=== PATIENT | male | born 1950 | race Caucasian/White ===

== ENCOUNTER 2016-09-28 11:19 | Observation (INO) | payer OTHER ==
[2016-09-28] MEDS ORDERED: ONDANSETRON DISINTEGRATING 4 MG TAB PO ONE (11:40)
--- NOTE | 2016-09-28 12:37 | EDPHY ---
H & P Stated Complaint: right upper quad pain nausea, diarrhea, hx gall stones Time Seen by Provider: 09/28/16 12:27 HPI/ROS: CHIEF COMPLAINT: RUQ abdominal pain. HISTORY OF PRESENT ILLNESS: The patient is a 66-year-old male who presents with four days of RUQ pain. The pain onset after a meal and has been waxing and waning since then. He denies known alleviating or provoking factors. He admits vomiting and 3 weeks of diarrhea. The diarrhea he has had since having the Norovirus. He denies fever, bloody stool, urinary symptoms. He was seen at [facility] for this complaint and discharged with the diagnosis of gastroenteritis. He has been using the Percocet prescribed to him at [place] to control the pain. REVIEW OF SYSTEMS: Aside from elements discussed in the HPI, a comprehensive 10-point review of systems was reviewed and is negative. PAST MEDICAL HISTORY: Hypertension, restless leg syndrome, appendectomy. SOCIAL HISTORY: Rare alcohol use. VITAL SIGNS: Reviewed by me GENERAL: Well-developed, well-nourished, resting comfortably in no respiratory distress. HEENT: Atraumatic. Eyes: No icterus, no injection. Mouth: Dry mucous membranes. No erythema or lesions. Neck: supple with no adenopathy. LUNGS: Crackles at right base. No wheezes, rhonchi or rales. CARDIAC: Regular rate and rhythm, no rubs, murmurs or gallops. ABDOMEN: RUQ tenderness. Soft, nondistended, bowel sounds normal. BACK: No CVA tenderness. EXTREMITIES: No trauma. No edema. Range of motion is normal throughout. NEURO: Alert and oriented, grossly nonfocal. SKIN: Warm and dry, no rash. PSYCHIATRIC: Normal mentation, no agitation. Portions of this note were transcribed by a quality engineer medical device. I personally performed a history, physical exam, medical decision making, and confirmed accuracy of information the transcribed note. Source: Patient Exam Limitations: No limitations - Personal History Current Tetanus/Diphtheria Vaccine: Unsure Current Tetanus Diphtheria and Acellular Pertussis (TDAP): Unsure - Medical/Surgical History Hx Asthma: No Hx Chronic Respiratory Disease: No Hx Diabetes: No Hx Cardiac Disease: No Hx Renal Disease: No Hx Cirrhosis: No Hx Alcoholism: No Hx HIV/AIDS: No Hx Splenectomy or Spleen Trauma: No Other PMH: states has irregular heart rythm "they always get excited about then its nothing"--unk name - Social History Smoking Status: Former smoker Constitutional: Initial Vital Signs Temperature (C) 37.2 C 09/28/16 11:29 Heart Rate 89 09/28/16 11:29 Respiratory Rate 16 09/28/16 11:29 Blood Pressure 102/58 L 09/28/16 11:29 O2 Sat (%) 88 L 09/28/16 11:29 O2 Delivery Mode Room Air O2 (L/minute) 2 Allergies/Adverse Reactions: No Known Allergies Allergy (Unverified 02/26/16 20:25) Home Medications: Medication Instructions Recorded Losartan/Hydrochlorothiazide 1 each PO DAILY@02/26/16 [Hyzaar 100-25 Tablet] Magnesium Oxide 250 mg PO DAILY@02/26/16 Pramipexole Di-HCl [Mirapex 1.5 mg] 1.5 mg PO DAILY@02/26/16 Cholecalciferol Vit D3 [Vitamin D3 1,000 units PO DAILY@09/28/16 (*)] Citalopram Hydrobromide 10 mg PO DAILY@09/28/16 [Citalopram HBr] Multivitamins [Multivitamin (*)] 1 each PO DAILY@09/28/16 Celoron-3 Fatty Acids [Fish Oil 1000 1,000 mg PO DAILY@09/28/16 mg (*)] Ondansetron Odt [Zofran Odt 4 mg 4 mg PO Q6HRS PRN 09/28/16 (*)] Oxymetazoline HCl [Afrin Nasal 1 spray EACHNARE DAILY PRN 09/28/16 [place] (OTC)] oxyCODONE/APAP 5/325 [Percocet 1 - 2 tab PO Q4HRS PRN 09/28/16 5/325 (*)] Medical Decision Making - Diagnostics Imaging: X-ray of the chest was obtained. I viewed the images myself on the PACS system. My interpretation of the images is: point-like atelectasis right lower lobe. The radiologist interpretation is pending at this time. I discussed the x-ray findings with the patient. Study: Ultrasound of the: RUQ. Indication: Pain, vomiting. Results: 1. Cholelithiasis with multiple gallstones and a 2.9 cm gallstone lodged in the gallbladder neck. Gallbladder wall thickening and pericholecystic fluid consistent with acute cholecystitis. 2. Common bile duct not well visualized. 3. Hepatomegaly and hepatic steatosis with with probable focal fatty sparing near the gallbladder fossa. The study was read by the radiologist, Dr. Lowe. I viewed the images myself on the PACS system. Results: CT scan of the chest for pulmonary embolism was obtained. I viewed the images independently on the PACS system. I discussed the results of the study with the radiologist. Impression: Atelectasis bibasilar and in the lingula. No PE. Please see the full radiology report. ED Course/Re-evaluation: An IV was established and labs ordered. Chest x-ray, RUQ ultrasound ordered. WBC elevated at 16.53. Patient's ultrasound is concerning for multiple signs of cholecystitis. Patient has several gallstones including 2.9 cm gallstone lodged in the neck of the gallbladder. Gallbladder wall thickening and pericholecystic fluid or also present. Patient was re-evaluated by myself. On room air he desaturates quickly to the mid to low 80% range. His D-dimer is elevated at 2.8. He underwent a CT scan to rule out pulmonary embolism. This shows no PE but is concerning for bibasilar and right lingular atelectasis. 1413: Patient was seen by Dr. Thomas Dawson in the emergency department. Plan to go to surgery as soon as the CT PE is performed. Differential Diagnosis: After obtaining the patient's history and performing an examination, differential diagnosis considered included but was not limited to cholecystitis , gastritis, pancreatitis, kidney stones, urinary tract infections, lower lobe pneumonia, and other causes. Consult/Admit Bed Type: Dr. Thomas Dawson, [facility] - Data Points Laboratory Results: Laboratory Results 09/28/16 12:30 09/28/16 12:30 09/28/16 12:30 WBC 16.53 H 10^3/uL (3.80-9.50) RBC 4.97 10^6/uL (4.40-6.38) Hgb 14.3 g/dL (13.7-17.5) Hct 43.4 % (40.0-51.0) MCV 87.3 fL (81.5-99.8) MCH 28.8 pg (27.9-34.1) MCHC 32.9 g/dL (32.4-36.7) RDW 14.0 % (11.5-15.2) Plt Count 240 10^3/uL (150-400) MPV 10.0 fL (8.7-11.7) Neut % (Auto) 84.5 H % (39.3-74.2) Lymph % (Auto) 5.3 L % (15.0-45.0) [place] % (Auto) 8.2 % (4.5-13.0) Eos % (Auto) 1.1 % (0.6-7.6) Baso % (Auto) 0.2 L % (0.3-1.7) Nucleat RBC Rel Count 0.0 % (0.0-0.2) Absolute Neuts (auto) 13.95 H 10^3/uL (1.70-6.50) Absolute Lymphs (auto) 0.88 L 10^3/uL (1.00-3.00) Absolute Monos (auto) 1.35 H 10^3/uL (0.30-0.80) Absolute Eos (auto) 0.19 10^3/uL (0.03-0.40) Absolute Basos (auto) 0.04 10^3/uL (0.02-0.10) Absolute Nucleated RBC 0.00 10^3/uL (0-0.01) Immature Gran % 0.7 % (0.0-1.1) Immature Gran # 0.12 H 10^3/uL (0.00-0.10) D-Dimer 2.88 H ug/mLFEU (0.00-0.50) Sodium 142 mEq/L (134-144) Potassium 3.8 mEq/L (3.5-5.2) Chloride 99 mEq/L (97-110) Carbon Dioxide 32 H mEq/l (22-31) Anion Gap 11 mEq/L (8-16) BUN 29 H mg/dL (7-23) Creatinine 1.3 mg/dL (0.7-1.3) Estimated GFR 55 Glucose 112 H mg/dL (70-100) Calcium 8.4 L mg/dL (8.5-10.4) Total Bilirubin 0.9 mg/dL (0.1-1.4) Conjugated Bilirubin 0.4 mg/dL (0.0-0.5) Unconjugated Bilirubin 0.5 mg/dL (0.0-1.1) AST 27 IU/L (17-59) ALT 40 IU/L (21-72) Alkaline Phosphatase 78 IU/L (38-126) Total Protein 6.3 g/dL (6.3-8.2) Albumin 3.4 L g/dL (3.5-5.0) Lipase 14.0 L IU/L (23-300) Medications Given: Discontinued Medications Hydromorphone HCl (Dilaudid) 1 mg IVP EDNOW ONE Stop: 09/28/16 12:39 Last Admin: 09/28/16 12:50 Dose: 1 mg Sodium Chloride (Ns) 1,000 mls @ 0 mls/hr IV ONCE ONE PRN Reason: Wide Open Stop: 09/28/16 12:39 Last Admin: 09/28/16 12:41 Dose: 1,000 mls Ondansetron HCl (Zofran Odt) 4 mg PO EDNOW ONE Stop: 09/28/16 11:41 Last Admin: 09/28/16 11:40 Dose: 4 mg Ondansetron HCl (Zofran) 4 mg IVP EDNOW ONE Stop: 09/28/16 12:43 Last Admin: 09/28/16 12:50 Dose: 4 mg Departure - Departure Disposition: [facility] Acute Clinical Impression: Cholecystitis, Hypoventilation, Atelectasis of both lungs, Hypoxemia Cholelithiasis Qualifiers: Cholelithiasis location: gallbladder Cholecystitis presence: with cholecystitis Cholecystitis acuity: acute Biliary obstruction: with biliary obstruction Qualifier Code: (K80.01) Calculus of gallbladder with acute cholecystitis with obstruction Abdominal pain Qualifiers: Abdominal location: right upper quadrant Qualifier Code: (R10.11) Right upper quadrant pain Condition: Fair Report Scribed for: Valorie Velasco Report Scribed by: Ivan Lam Date of Report: 09/28/16 Time of Report: 12:29
[2016-09-28] MEDS ORDERED: NS 1,000 ML IV ONE ×2 (12:38→15:12)
[2016-09-28] MEDS ORDERED: HYDROmorphONE/DILAUDID 1 MG/ML SYR IVP ONE (12:38)
[2016-09-28] MEDS ORDERED: ONDANSETRON 4 MG/2 ML VIAL IVP ONE (12:42)
[2016-09-28 12:45] LABS: % IMMATURE GRANULYOCYTES 0.7 % (0.0-1.1); ABSOLUTE IMMATURE GRANULOCYTES 0.12 10^3/uL (0.00-0.10); ADD DIFF? NO; ADD MORPH? NO; ADD SCAN? NO; ATYPICAL LYMPHOCYTE FLAG 0 (0-99); FRAGMENT RBC FLAG 0 (0-99); HEMATOCRIT 43.4 % (40.0-51.0); HEMOGLOBIN 14.3 g/dL (13.7-17.5); LEFT SHIFT FLG 10 (0-99); LIPEMIA HEMOLYSIS FLAG 80 (0-99); MEAN CELL HEMOGLOBIN 28.8 pg (27.9-34.1); MEAN CELL HEMOGLOBIN CONCENTR. 32.9 g/dL (32.4-36.7); MEAN CELL VOLUME 87.3 fL (81.5-99.8); PLATELET CLUMPS FLAG 0 (0-99); PLATELET COUNT 240 10^3/uL (150-400); RED BLOOD CELL COUNT 4.97 10^6/uL (4.40-6.38)
[2016-09-28 12:59] LABS: ALANINE AMINOTRANSFERASE 40 IU/L (21-72); ALBUMIN 3.4 g/dL (3.5-5.0); ALKALINE PHOSPHATASE 78 IU/L (38-126); ANION GAP 11 mEq/L (8-16); ASPARTATE AMINOTRANSFERASE 27 IU/L (17-59); BILIRUBIN,TOTAL 0.9 mg/dL (0.1-1.4); BILIRUBIN-CONJUGATED 0.4 mg/dL (0.0-0.5); BILIRUBIN-UNCONJUGATED 0.5 mg/dL (0.0-1.1); CALCIUM 8.4 mg/dL (8.5-10.4); CARBON DIOXIDE 32 mEq/l (22-31); CHLORIDE 99 mEq/L (97-110); CREATININE 1.3 mg/dL (0.7-1.3); GLOMERULAR FILTRATION RATE 55; GLUCOSE 112 mg/dL (70-100); POTASSIUM 3.8 mEq/L (3.5-5.2); SODIUM 142 mEq/L (134-144); TOTAL PROTEIN 6.3 g/dL (6.3-8.2)
--- NOTE | 2016-09-28 13:32 | DX ---
Chest, Two Views September 28, 2016 at 1236 Hours History: Cough, shortness of breath, abdominal pain. Comparison: None. Findings: Cardiac silhouette is within normal range. Linear atelectasis or scarring in the right midd le lobe and lingula. No pneumonia, congestive heart failure, pleural effusion, or pneumothorax. Impressions: 1. Right middle lobe and lingular linear atelectasis or scarring. 2. No pneumothorax. 3. No pneumoperitoneum.
--- NOTE | 2016-09-28 13:59 | US ---
Ultrasound of the Abdomen Limited History: Right upper quadrant Abdominal pain. Findings: Gallbladder: Multiple shadowing gallstones identified with a 2.9 cm nonmobile gallstone lodged in gal lbladder neck region. Additional gallstones in the fundus. Minimal pericholecystic fluid. Diffuse gal lbladder wall thickening measuring at least 7 mm. Common bile duct not well visualized. Liver: Liver measures 18 cm in length which is enlarged with diffusely increased echogenicity through out which limits evaluation for focal lesions. Region of probable focal fatty sparing near the gallbl adder fossa measuring 3.2 x 2.9 x 1.7 cm. Renal: Right kidney measures 11 x 7 x 5 cm without hydronephrosis. Pancreas: Obscure by bowel gas. Aorta: Obscured by bowel gas. Impression: 1. Cholelithiasis with multiple gallstones and a 2.9 cm gallstone lodged in the gallbladder neck. Gal lbladder wall thickening and pericholecystic fluid consistent with acute cholecystitis. 2. Common bile duct not well visualized. 3. Hepatomegaly and hepatic steatosis with with probable focal fatty sparing near the gallbladder fos sa. Findings and recommendations discussed with Emergency Department physician, Dr. Valorie Velasco at 1355 hour, today. Final report concurs with initial preliminary interpretation.
[2016-09-28] MEDS ORDERED: IOPAMIDOL (ISOVUE 370) 100 ML BTL IV ONE (14:24)
[2016-09-28] MEDS ORDERED: BUPIVACAINE/EPI 0.25% 30 ML SDV ONE (14:34)
[2016-09-28] MEDS ORDERED: SKIN ADHESIVE (DERMABOND) 1 EACH TP ONE (14:34)
[2016-09-28] MEDS ORDERED: fentaNYL 100 MCG/2 ML INJ ONE ×2 (15:20→16:31)
[2016-09-28] MEDS ORDERED: PROPOFOL/EMULSION 500 MG/50 ML BOTTLE IV ONE (15:20)
--- NOTE | 2016-09-28 15:22 | CT ---
CT Chest Pulmonary Angiogram, With Contrast Enhancement and Multiplanar Reconstructions 1459 hour s History: Cholecystitis, hypoxia, elevated D-dimer, former smoker, right-sided chest pain, right uppe r quadrant abdominal pain. Technique: 1.25-mm axial multidetector helical CT imaging was performed through the chest while 90 m L Isovue-370 were injected intravenously, without complication. The images were then transferred to an independent workstation where multiplanar and three-dimensional reconstructions were performed by the interpreting physician and reviewed at multiple windows. Dose reduction techniques were utilized . CT Pulmonary Angiogram Findings: No CT evidence of definite pulmonary thromboemboli. No aortic aneu rysm or dissection. The heart is normal in size. CT Chest Findings: Linear densities in the right middle lobe, bilateral lower lobes, and lingula lik rufina representing atelectasis. No pleural effusion or pneumothorax. No suspicious pulmonary nodules or significant adenopathy. No pericardial effusion. The upper abdomen demonstrates a 2.5-cm gallstone, with pericholecystic fluid, consistent with acute cholecystitis. Impressions 1. No definite pulmonary thromboemboli. 2. Acute cholecystitis, with cholelithiasis. 3. Subsegmental atelectasis bilateral lower lobes, right middle lobe, and lingula. Findings and recommendations discussed with Emergency Department physician, Dr. Valorie Velasco, at 1510 hours, on September 28, 2016. Final report concurs with initial preliminary interpretation. A test result has been communicated to a licensed care provider and documented in [employer], 3:14:19 PM , 09/28/2016, [employer] Message ID [id number].
[2016-09-28] MEDS ORDERED: ERTAPENEM 1 GM in NS 100 ML IV ONE (15:24)
[2016-09-28] MEDS ORDERED: MIDAZOLAM 2 MG/2 ML VIAL ONE (15:42)
--- NOTE | 2016-09-28 15:48 | GHP ---
[f rep st] HISTORY AND PHYSICAL DATE OF ADMISSION: 09/28/2016 CHIEF COMPLAINT: Epigastric and right upper quadrant pain. HISTORY OF PRESENT ILLNESS: This is a 66-year-old male who presents today with persistent right uppe r quadrant pain associated with nausea and vomiting. The patient was seen at an outside hospital las t with similar complaints where he was diagnosed with gastroenteritis/GERD, subsequently romina nathalia on Percocet, and sent home. The patient states that the pain has been persistent, although less so with the oral narcotics, although if he does not dose the narcotics fairly regularly, he has recur rent pain. He states that this is not the first episode of pain he has had, he did have 1 episode th e previous week which he feels was exacerbated and set off by a spicy food meal. This was self-limit ed and afterwards he felt well. He states that once again last he had a spicy chili meal an d had persistent pain which has only been relieved with narcotics. He describes the pain as right up per quadrant with radiation to his back and epigastrium. He does associate nausea and vomiting with it. He denies having fevers or chills. He also denies having any acholic stools or any unusually da rk urine. Other than the above complaints, he has no other issues. PAST MEDICAL HISTORY: Significant for hypertension, depression and restless legs syndrome. PAST SURGICAL HISTORY: Significant for laparoscopic appendectomy performed approximately 15 years ag o here at [facility]. ALLERGIES: None. CURRENT MEDICATIONS: Include losartan, hydrochlorothiazide, Mirapex and Celexa. REVIEW OF SYSTEMS: A full 10-point review of systems was performed, and unless explicitly stated abo ve, is otherwise negative. PHYSICAL EXAMINATION: VITAL SIGNS: His temperature today is 37.2, his blood pressure is 101/49, his heart rate is 69, and he is 94% on 2 L nasal cannula. GENERAL: He is alert and oriented, in no acu te distress. CV: He has a regular rate and rhythm. He has no murmurs. LUNGS: Clear. ABDOMEN: O bese, distended, tender in the right upper quadrant, with a positive Delgadillo sign. He has previously well-healed scars consistent with his past surgical history. EXTREMITIES: Warm and well perfused. LABS: He has a leukocytosis to 16,000. His H and H are stable. His chemistry is within normal limi ts, although he does have an elevated glucose to 112. In addition, he does have an elevated D-dimer to 2.8 and is hypoxic on room air. IMAGING: He had an ultrasound performed which shows no intra- or extraductal dilatation. It does, h owever, show multiple gallstones, one appears to be lodged within the gallbladder neck, with an eleva alana gallbladder wall at 7 mm. He also has an enlarged fatty liver at 18 cm. He has a chest x-ray wh ich shows likely atelectasis. ASSESSMENT AND PLAN: The patient is a 66-year-old male with acute cholecystitis. I had a long discu ssion with the patient regarding his diagnosis. I am concerned given his underlying hypoxia with his elevated D-dimer, and prior to proceeding to the operating room, I will obtain a CTA to rule out pul monary embolus as he has 2 worrisome findings. I discussed the risks, benefits, and alternatives of the surgery with him, and if the CTA does indeed show no pulmonary embolus, I will plan to proceed to the operating room for a laparoscopic cholecystectomy. /[id number]/MODL
[2016-09-28] MEDS ORDERED: SUGAMMADEX SODIUM 200 MG/2 ML VIAL IVP ONE (16:39)
[2016-09-28] MEDS ORDERED: OXYCODONE/APAP 5/325 TAB PO PRN (17:16)
[2016-09-28] MEDS ORDERED: HYDROmorphONE/DILAUDID 1 MG/ML SYR IVP PRN (17:16)
[2016-09-28] MEDS ORDERED: ONDANSETRON 4 MG/2 ML VIAL IVP PRN (17:16)
--- NOTE | 2016-09-28 17:23 | POSTOPPROG ---
Post Op Note Date of Operation: 09/28/16 Surgeon: Thomas Dawson Anesthesiologist: Donavon Anesthesia: GET(General Endotracheal) Pre-op Diagnosis: cholecystitis Post-op Diagnosis: gangrenous cholecystitis Indication: pain Procedure: lap irving Findings: gangrenous cholecystitis. Critical view obtained Inf/Abcess present in the surg proc area at time of surgery?: No EBL: 50-100 Drains: Lamont Dawn Specimen(s): gallbladder
--- NOTE | 2016-09-28 18:13 | GOP ---
[f rep st] OPERATIVE REPORT DATE OF OPERATION: 09/28/2016 SURGEON: Thomas Dawson MD SKIN LIFTER BACON: None. ANESTHESIA: General endotracheal. ANESTHESIOLOGIST: Dr. Raphael. PREOPERATIVE DIAGNOSIS: Cholecystitis. POSTOPERATIVE DIAGNOSIS: Gangrenous cholecystitis. PROCEDURE PERFORMED: Laparoscopic cholecystectomy. FINDINGS: Gangrenous gallbladder wall with significant amount of adhesions and inflammation. Critic al view obtained. SPECIMENS: Gallbladder. ESTIMATED BLOOD LOSS: 50 mL. DESCRIPTION OF PROCEDURE: The patient was greeted in the preoperative suite. Once again, risks, jameson efits, and alternatives were discussed. Consent was signed. He was then brought back to the operati ve suite, placed on the OR table in a supine position. After all anesthesia machines, including SCDs were on and functioning, a [employer] time-out was performed, ending with all in [facility]. General endotracheal anesthesia was then induced without incident. Antibiotics were given on -call to the operating room. The patient's abdomen was then widely prepped and draped in typical evelina rile fashion. I entered the abdomen using the Veress needle in the left upper quadrant. After succe ssful entry, I insufflated to 15 mmHg CO2 which was well tolerated by the patient. I entered the abd omen via his previous horizontal supraumbilical scar using a 10 mm zero-degree laparoscope and a Visi port technique. Once successfully in the abdomen, I placed 3 additional 5 mm trocars, 2 in the right upper quadrant and 1 in the subxiphoid space under direct visualization. Once all ports were placed , I directed my attention toward the right upper quadrant where a significant amount of omental adhes ions had been developed toward the gallbladder. These were taken down with blunt dissection. The do me of the gallbladder was then identified and noted to be gangrenous. The gallbladder was aspirated of bile to allow sufficient visualization and retraction. After this, he continued to have a signifi cant amount of inflammation and adhesions all the way down into the infundibulum. I then grasped the infundibulum, and using a combination of blunt dissection and electrocautery, started in a lateral t o medial fashion on the gallbladder itself. I identified 2 structures, and only 2 structures, leadin g toward the gallbladder. The medial one I identified as the cystic artery. I clipped twice proxima lly, once distally, and divided. I then continued skeletonization of the cystic duct, noting no othe r structures leading to the gallbladder, and had a critical view, of which I could see liver through this area. I then placed 3 clips proximally on this, 1 distally, and divided the cystic duct. I the n took the gallbladder proper off of the bed of the liver using blunt dissection and electrocautery. I then removed it using an EndoCatch bag. Hemostasis was achieved with gentle pressure and electroc autery in the bed of the liver. Given the significant amount of dense inflammation, I elected to romina ce a 15 round [place] silicone BECK into the gallbladder fossa. This was brought out through my right-m ost port site and attached it to the skin with an interrupted nylon suture. All ports were then yuval matti under direct visualization. Marcaine 0.25% with epinephrine was instilled in all sites to provid e adequate analgesia. I then closed the patient's umbilical port site with a running 0 Vicryl stitch , noting excellent fascial reapproximation. The skin was closed with running 4-0 Monocryl, covered w ith Dermabond. The patient was then extubated in the operative suite and taken to the PACU in satisf actory condition. DRAINS: A 15-[place] BECK in gallbladder fossa. COUNTS: All counts were reported as correct x2. /[id number]/MODL
[2016-09-28] MEDS: D5W 1/2 NS W/ 20 KCl/L 1,000 ML IV SCH (18:29)
[2016-09-29] MEDS: HEPARIN 5,000 UNIT/0.5 ML SYR SC SCH ×2 (05:26→15:06)
[2016-09-29] MEDS: D5W 1/2 NS W/ 20 KCl/L 1,000 ML IV SCH (07:23)
[2016-09-29 07:55] VITALS: BP 103/61; PULSE 66; RESP 18; TEMP 98
[2016-09-29] MEDS ORDERED: BISACODYL 10 MG SUPP PR PRN (08:52)
[2016-09-29] MEDS ORDERED: LACTULOSE 20 GM/30 ML UDCUP PO PRN (08:52)
[2016-09-29] MEDS ORDERED: MAGNESIUM HYDROXIDE 30 ML UDCUP PO PRN (08:52)
[2016-09-29] MEDS ORDERED: POLYETHYLENE GLYCOL 3350 17 GM PKT PO PRN (08:52)
[2016-09-29] MEDS ORDERED: SENNOSIDES/DOCUSATE SODIUM TAB PO SCH (09:00)
--- NOTE | 2016-09-29 09:54 | SOAPPROG ---
SOAP Progress Note Assessment/Plan: Assessment/Plan 66yo M POD#1 s/p lap irving for cholecystitis - Pain appropriately controlled, tolerating clears without issue. BECK serosang, abdomen soft and incisions c.d.i. Will plan to ADAT this AM. If tolerates and BECK non-bilious will remove and plan for home later today. Has had significant O2 requirement so may need home O2, discussed weaning this with the patient this AM and will hopefully get off before d/c but may need supplemental O2 for week or so. 09/29/16 09:52 Subjective: Pain improved, no nausea. Objective: Vital Signs Temp Pulse Resp BP Pulse Ox 36.6 C 66 18 103/61 91 L 09/29/16 07:52 09/29/16 07:52 09/29/16 07:52 09/29/16 07:52 09/29/16 08:08 09/28/16 09/29/16 09/30/16 05:59 05:59 05:59 Intake Total 3050 Output Total 690 25 Balance 2360 -25 Physical Exam - Physical Exam General Appearance: WD/WN, alert, no apparent distress Respiratory: chest non-tender, lungs clear, normal breath sounds Cardiac/Chest: regular rate, rhythm Abdomen: other (soft, appropriately tender, incisions c/d/i, BECK serosang) ICD10 Worksheet Patient Problems: Problems Problem Status Diagnosed Abdominal pain Acute Atelectasis of both lungs Acute Cholecystitis Acute Cholelithiasis Acute Hypoventilation Acute Hypoxemia Acute
[2016-09-29 15:09] VITALS: O2SAT 95
== END 2016-09-29 15:05 | disposition home or self-care (01) ==
LOC: INTOOBSV 14:08 → F1N 18:09
PROVIDERS: ADMIT Surgery; ATTEND Surgery
PROC: 0FT44ZZ Resection of Gallbladder, Percutaneous Endoscopic Approach (ICD-10-PCS; principal; 2016-09-28 15:35)
DX: K80.00 Calculus of gallbladder with acute cholecystitis without obstruction (principal); I10 Essential (primary) hypertension; F32.9 Major depressive disorder, single episode, unspecified
CPT/HCPCS: 47562; 71020; 71275; 76705; G0378; 96374; J1170; J1335; J2250; J2405; J2704; J3010; Q9967